=== PATIENT | male | born 1945 | race Caucasian/White ===

== ENCOUNTER 2016-12-24 17:28 | Inpatient (IN) | payer OTHER ==
[~2016-12-24] VITALS: Ht 182.9 cm; Wt 116.4 kg
[2016-12-24] VITALS (16 sets, daily range): BP systolic 80–127; BP diastolic 44–78
--- NOTE | ~2016-12-24 | 2DMMODE ---
[facility] [address] [place] [address] 2 D/M-MODE ECHOCARDIOGRAM Name: VANITA DUMONT Room #: 241-P ADM IN M.R.#: [id number] Admission: 12/24/16 Attend Phys: Houston Wooten Discharge: Date of : 49 Date of Service: 12/25/16 0947 Report #: [id number] THIS REPORT FOR: //name// APPROVED REPORT Study performed: 12/25/2016 08:47:04 EXAM: Comprehensive 2D, Doppler, and color-flow Echocardiogram Patient Location: Bedside Room #: 241 Status: routine Other Information Study Quality: Fair Technically limited study due to limited mobility in ICU, on vent, body habitus. Indications Congestive Heart Failure Hx: Afib, CHF 2D Dimensions RVDd: 41.24 mm LVEF(%): 66.93 (>50%) IVSd: 14.31 (7-11mm) LVOT Diam: 21.07 (18-24mm) LVDd: 50.02 mm PWd: 13.82 (7-11mm) LVDs: 31.41 (25-40mm) Aortic Root: 31.02 mm Beal's LVEF: 66.93 % Volumes Left Atrial Volume (Systole) Single Plane 4CH: 86.22 mL Single Plane 2CH: 84.96 mL LA ESV Index: 39.00 mL/m2 Aortic Valve AoV Peak Phillip.: 2.89 m/s AO Peak Gr.: 33.37 mmHg LVOT Max P.64 mmHg AO Mean Gr.: 18.30 mmHg AO V2 Mean: 2.05 m/s LVOT Max V: 1.38 m/s AO V2 VTI: 58.08 cm NEIL Vmax: 1.67 cm2 Mitral Valve E/A Ratio: 1.1 [facility] [employer] [place] [address] 2 D/M-MODE ECHOCARDIOGRAM Name: VANITA DUMONT Room #: 241-P ADM IN M.R.#: [id number] Admission: 12/24/16 Attend Phys: Houston Wooten Discharge: Date of : 49 Date of Service: 12/25/16 0947 Report #: [id number] MV Decel. Time: 212.38 ms MV E Max Phillip.: 1.22 m/s MV A Phillip.: 1.07 m/s MV PHT: 61.59 ms IVRT: 51.90 ms Pulmonary Valve PV Peak Phillip.: 1.56 m/s PV Peak Gr.: 9.67 mmHg Tricuspid Valve RAP Estimate: 10.00 mmHg Left Ventricle The left ventricle is normal size. There is normal LV segmental wall motion. Mild concentric left ventricular hypertrophy. Left ventricular systolic function is normal. LVEF is 60-65%. Moderate diastolic dysfunction is present (pseudonormal filling). Right Ventricle Right ventricle is not well visualized. Atria Left atrium is mildly dilated. Right atrium is mildly dilated. Aortic Valve Aortic valve is calcified. No aortic regurgitation is present. There is mild valvular aortic stenosis. Calculated aortic valve area is 1.7 cm2 with maximum pressure gradient of 34 mmHg and mean pressure gradient of 18 mmHg. Mitral Valve Mitral valve leaflets are thickened. Mild mitral annular calcification. There is no mitral valve regurgitation noted. No evidence of mitral valve stenosis. Tricuspid Valve The tricuspid valve is normal in structure. There is no tricuspid valve regurgitation noted. Pulmonic Valve Pulmonic valve is not well visualized. Great Vessels The aortic root is normal in size. Ascending aorta is not well visualized. IVC is dilated and collapses <50% with [facility] [address] [place] [address] 2 D/M-MODE ECHOCARDIOGRAM Name: VANITA DUMONT Room #: 241-P [facility] IN M.R.#: [id number] Admission: 12/24/16 Attend Phys: Houston Wooten Discharge: Date of : 49 Date of Service: 12/25/16 0947 Report #: [id number] inspiration. Pericardium There is no pericardial effusion. <Conclusion> The left ventricle is normal size. LVEF is 60-65%. Right ventricle is not well visualized. Left atrium is mildly dilated. Right atrium is mildly dilated. Aortic valve is calcified. No aortic regurgitation is present. There is mild valvular aortic stenosis. Calculated aortic valve area is 1.7 cm2 with maximum pressure gradient of 34 mmHg and mean pressure gradient of 18 mmHg. Mitral valve leaflets are thickened. Mild mitral annular calcification. There is no mitral valve regurgitation noted. No evidence of mitral valve stenosis. The tricuspid valve is normal in structure. Pulmonic valve is not well visualized. Ascending aorta is not well visualized. <ELECTRONICALLY SIGNED> By: Jeff Hernández MD 12/25/16 0947 Jeff Hernández MD /INF
--- NOTE | ~2016-12-24 | EKG ---
[address] [employer] [place] [address] ELECTROCARDIOGRAM REPORT Name: VANITA DUMONT Room #: 241-P ADM IN M.R.#: [id number] Admission: 12/24/16 Attend Phys: Blair Roberts MD Discharge: Date of : 49 Report #: [id number] THIS REPORT FOR: //name// [facility] Test Date: 2016-12-28 Test Time: 20:17:31 Pat Name: VANITA DUMONT Department: Room: 241 P Gender: M Hat Cleaner: Houston SULLIVAN : 1945 Requested By: Guzman Beltran Order Number: [id number] MD: Yves Tellez Measurements Intervals [place] Rate: 92 P: 54 ME: 179 QRS: -12 QRSD: 117 T: 77 QT: 373 QTc: 462 Interpretive Statements Sinus rhythm Ventricular premature complex Incomplete right bundle branch block Low voltage, extremity leads No previous ECG available for comparison Electronically Signed On 12-29-2016 8:12:58 CDT by Yves Tellez [email or web address] <ELECTRONICALLY SIGNED> By: Yves Tellez MD 12/29/16811 16 16 Yves Tellez MD /SANDRA
[2016-12-24 18:13] LABS: ABG SAMPLE TYPE ARTERIAL; BE(vivo) -2.3 mmol/L (-2 to +3); HCO3 21.8 mmol/L (22.0-26.0); LACTATE 1.42 mmol/L (0.5-2.0); O2(CT) 11.2 mL/dL (15.0-23.0); O2Hb 93.1 % (92.0-98.0); PCO2 34.4 mmHg (35.0-45.0); PO2 75.5 mmHg (80.0-100.0); sO2 95.5 % (92.0-98.0); tCO2 22.9 mmol/L (24.0-30.0)
[2016-12-24 18:14] LABS: STICK SITE L.RADIAL; TIDAL VOLUME 550 ml
[2016-12-24 18:20] LABS: URINE BILIRUBIN NEGATIVE (Negative); URINE BLOOD 2+ (Negative); URINE COLOR YELLOW; URINE GLUCOSE-RANDOM* NEGATIVE (Negative); URINE KETONES NEGATIVE (Negative); URINE NITRITE NEGATIVE (Negative); URINE PROTEIN (DIPSTICK) 2+ (Negative); URINE SPECIFIC GRAVITY 1.015 (1.003-1.035); URINE UROBILINOGEN 0.2 E.U./dl (0.2-1.0)
[2016-12-24 18:23] LABS: HEMATOCRIT 21.1 % (42.0-52.0); MCH 30.3 pg (26.0-34.0); MCHC 33.4 g/dL (28.0-37.0); MCV 90.7 fL (80.0-100.0); PLATELET COUNT 48 thou/uL (150-400); RBC 2.32 mil/uL (4.50-6.00); RDW 18.6 % (10.5-14.5)
[2016-12-24 18:26] LABS: AMORPHOUS URATES Moderate /LPF (None Seen); BACTERIA 1-9 Few /HPF (None Seen); CASTS None Seen /LPF (None Seen); SQUAMOUS None Seen /LPF (0-3); URINE RBC 3-10 Few /HPF (0-2); URINE WBC None Seen /HPF (0-5)
[2016-12-24 18:29] LABS: CALCIUM 8.4 mg/dL (8.5-10.1); CREATININE 3.3 mg/dL (0.7-1.3); POTASSIUM 3.7 mmol/L (3.5-5.1)
[2016-12-24 18:30] LABS: MANUAL DIFF YES
[2016-12-24 18:34] LABS: DIRECT BILIRUBIN 0.3 mg/dL (<0.1-0.3); INR 1.1; PROTIME 11.1 Seconds (9.3-11.4); TOTAL BILIRUBIN 0.9 mg/dL (<0.1-1.0); TOTAL PROTEIN 5.4 g/dL (6.4-8.2)
[2016-12-24 18:58] LABS: ABSOLUTE NEUTROPHILS 0.6 thou/uL (1.4-8.2); ANISOCYTOSIS 1+; TOTAL CELL COUNT 100
[2016-12-24] MEDS ORDERED: PACERONE 200 M200 M1 PO (19:14)
[2016-12-24] MEDS ORDERED: NOVOLOG100 UNIT/1 SUBQ (19:16)
[2016-12-24] MEDS ORDERED: LANSOPRAZOLE PO (19:18)
[2016-12-24] MEDS ORDERED: LIDODERM 5%1 PATC1 TRANSDERM (19:18)
[2016-12-24] MEDS ORDERED: LOPERAMIDE 2 MG2 M1 PO (19:19)
[2016-12-24] MEDS ORDERED: ANTACID650 MG PO (19:20)
[2016-12-24] MEDS ORDERED: TACROLIMUS1 MG PO (19:20)
[2016-12-24] MEDS ORDERED: ZOLOFT50 MG PO (19:20)
[2016-12-24] MEDS ORDERED: VANCOMYCIN100 MG/ML PO (19:23)
[2016-12-24] MEDS ORDERED: DEXTROSE 5025 GM/SYR IV PUSH (19:24)
[2016-12-24] MEDS ORDERED: FENTANYL 0.50 MCG/ML IV (19:25)
[2016-12-24] MEDS ORDERED: DIAZEPAM5 MG/1 M1 IV (19:25)
[2016-12-24] MEDS ORDERED: GLUCAGON EMERGEN1 MG IJ (19:26)
[2016-12-24] MEDS ORDERED: GLUTOSE GEL 1515 G1 PO (19:29)
[2016-12-24] MEDS ORDERED: GLUCOSE BITS1 GM PO (19:32)
[2016-12-25] VITALS (42 sets, daily range): BP systolic 81–123; BP diastolic 44–105
[2016-12-25 03:19] LABS: GLYCOHEMOGLOBIN (HGB A1C) 4.9 % (4.8-5.6)
[2016-12-25] MEDS ORDERED: MICONAZOLE5 GM TOP (03:21)
[2016-12-25 05:28] LABS: MCH 30.2 pg (26.0-34.0); MCHC 33.6 g/dL (28.0-37.0); MCV 89.8 fL (80.0-100.0); PLATELET COUNT 41 thou/uL (150-400); RBC 1.92 mil/uL (4.50-6.00); RDW 18.4 % (10.5-14.5)
[2016-12-25 05:29] LABS: MANUAL DIFF YES
[2016-12-25 05:32] LABS: HEMATOCRIT 17.2 % (42.0-52.0); HEMOGLOBIN 5.8 gm/dL (14.0-18.0)
[2016-12-25 05:34] LABS: CALCIUM 7.8 mg/dL (8.5-10.1); CREATININE 3.5 mg/dL (0.7-1.3); POTASSIUM 3.9 mmol/L (3.5-5.1)
[2016-12-25 06:22] LABS: HEMOGLOBIN 5.8 gm/dL (14.0-18.0)
[2016-12-25 09:03] LABS: ABSOLUTE NEUTROPHILS 0.7 thou/uL (1.4-8.2); TOTAL CELL COUNT 50
[2016-12-25 09:04] LABS: ANISOCYTOSIS 2+
[2016-12-25 09:05] LABS: HYPOCHROMASIA 2+
[2016-12-25 14:00] LABS: HEMATOCRIT 20.3 % (42.0-52.0); HEMOGLOBIN 6.8 gm/dL (14.0-18.0)
[2016-12-26] VITALS (23 sets, daily range): BP systolic 87–134; BP diastolic 48–100
[2016-12-26 05:01] LABS: HEMOGLOBIN 8.1 gm/dL (14.0-18.0)
[2016-12-26 05:03] LABS: HEMATOCRIT 24.2 % (42.0-52.0); MCH 29.8 pg (26.0-34.0); MCHC 33.5 g/dL (28.0-37.0); PLATELET COUNT 40 thou/uL (150-400); RBC 2.71 mil/uL (4.50-6.00)
[2016-12-26 05:09] LABS: MANUAL DIFF YES
[2016-12-26 05:11] LABS: WBC 1.4 thou/uL (4.0-11.0)
[2016-12-26 05:18] LABS: ALBUMIN 2.1 g/dL (3.4-5.0); CREATININE 3.6 mg/dL (0.7-1.3); PHOSPHORUS 4.9 mg/dL (2.5-4.9); POTASSIUM 3.8 mmol/L (3.5-5.1)
[2016-12-26 06:54] LABS: ABSOLUTE NEUTROPHILS 0.9 thou/uL (1.4-8.2); ANISOCYTOSIS 2+; HYPOCHROMASIA 1+; POIKILOCYTOSIS SLIGHT; POLYCHROMASIA SLIGHT; TOTAL CELL COUNT 50
[2016-12-26 11:35] LABS: ABG SAMPLE TYPE ARTERIAL; BE(vivo) -9.9 mmol/L (-2 to +3); HCO3 17.9 mmol/L (22.0-26.0); LACTATE 1.42 mmol/L (0.5-2.0); O2(CT) 12.1 mL/dL (15.0-23.0); O2Hb 85.8 % (92.0-98.0); PCO2 47.9 mmHg (35.0-45.0); PO2 66.5 mmHg (80.0-100.0); sO2 88.3 % (92.0-98.0); tCO2 19.4 mmol/L (24.0-30.0)
[2016-12-26 11:36] LABS: STICK SITE R.RADIAL
[2016-12-26 11:37] LABS: TIDAL VOLUME 500 ml
[2016-12-27] VITALS (51 sets, daily range): BP systolic 76–125; BP diastolic 46–102
[2016-12-27 06:06] LABS: CALCIUM 7.9 mg/dL (8.5-10.1); PHOSPHORUS 7.7 mg/dL (2.5-4.9); POTASSIUM 4.1 mmol/L (3.5-5.1)
[2016-12-27 07:25] LABS: HEMOGLOBIN 6.6 gm/dL (14.0-18.0); RBC 2.2 mil/uL (4.50-6.00)
[2016-12-27 07:26] LABS: MCH 29.8 pg (26.0-34.0); MCHC 33.1 g/dL (28.0-37.0); MCV 90.1 fL (80.0-100.0); RDW 18.3 % (10.5-14.5)
[2016-12-27 07:29] LABS: HEMATOCRIT 19.8 % (42.0-52.0); WBC 1.9 thou/uL (4.0-11.0)
[2016-12-27 10:04] LABS: ABG SAMPLE TYPE ARTERIAL; BE(vivo) -7.5 mmol/L (-2 to +3); HCO3 18.9 mmol/L (22.0-26.0); LACTATE 1.36 mmol/L (0.5-2.0); O2(CT) 9.4 mL/dL (15.0-23.0); O2Hb 93.2 % (92.0-98.0); PCO2 42.1 mmHg (35.0-45.0); PO2 90.9 mmHg (80.0-100.0); STICK SITE R.RADIAL; TIDAL VOLUME 500 ml; pH 7.269 (7.360-7.450); sO2 95.9 % (92.0-98.0); tCO2 20.1 mmol/L (24.0-30.0)
[2016-12-27 17:56] LABS: HEMOGLOBIN 6.7 gm/dL (14.0-18.0)
[2016-12-27 17:57] LABS: HEMATOCRIT 19.8 % (42.0-52.0)
[2016-12-28] VITALS (27 sets, daily range): BP systolic 73–138; BP diastolic 40–117
[2016-12-28 05:05] LABS: HEMOGLOBIN 7.2 gm/dL (14.0-18.0); MCV 88.9 fL (80.0-100.0)
[2016-12-28 05:07] LABS: HEMATOCRIT 21.4 % (42.0-52.0); MCHC 33.8 g/dL (28.0-37.0); PLATELET COUNT 36 thou/uL (150-400); RDW 18.2 % (10.5-14.5)
[2016-12-28 05:08] LABS: MANUAL DIFF YES
[2016-12-28 05:10] LABS: WBC 1.8 thou/uL (4.0-11.0)
[2016-12-28 05:23] LABS: CALCIUM 7.6 mg/dL (8.5-10.1); CREATININE 4.1 mg/dL (0.7-1.3); PHOSPHORUS 7.4 mg/dL (2.5-4.9); POTASSIUM 3.8 mmol/L (3.5-5.1)
[2016-12-28 05:31] LABS: BE(vivo) -5.6 mmol/L (-2 to +3); HCO3 17.6 mmol/L (22.0-26.0); LACTATE 1.31 mmol/L (0.5-2.0); O2(CT) 8.9 mL/dL (15.0-23.0); O2Hb 88.2 % (92.0-98.0); PCO2 25.8 mmHg (35.0-45.0); STICK SITE RRA; pH 7.452 (7.360-7.450); sO2 85.4 % (92.0-98.0); tCO2 18.4 mmol/L (24.0-30.0)
[2016-12-28 05:32] LABS: PO2 46.4 mmHg (80.0-100.0); TIDAL VOLUME 500 ml
[2016-12-28 06:28] LABS: ABG SAMPLE TYPE VENOUS
[2016-12-28 07:39] LABS: ABSOLUTE NEUTROPHILS 1.5 thou/uL (1.4-8.2); TOTAL CELL COUNT 100
[2016-12-28 07:40] LABS: ANISOCYTOSIS 2+; OVALOCYTES FEW; POLYCHROMASIA OCCASIONAL
[2016-12-28 08:21] LABS: ABG SAMPLE TYPE ARTERIAL; HCO3 20.2 mmol/L (22.0-26.0); LACTATE 1.61 mmol/L (0.5-2.0); O2(CT) 13.1 mL/dL (15.0-23.0); O2Hb 91.5 % (92.0-98.0); PCO2 47.9 mmHg (35.0-45.0); PO2 76.8 mmHg (80.0-100.0); tCO2 21.6 mmol/L (24.0-30.0)
[2016-12-28 08:22] LABS: STICK SITE L.RADIAL; pH 7.242 (7.360-7.450)
[2016-12-28 08:23] LABS: TIDAL VOLUME 500 ml
[2016-12-28 12:49] LABS: ALBUMIN 2.1 g/dL (3.4-5.0); DIRECT BILIRUBIN 0.5 mg/dL (<0.1-0.3); TOTAL BILIRUBIN 1.3 mg/dL (<0.1-1.0); TOTAL PROTEIN 5.8 g/dL (6.4-8.2)
[2016-12-29] VITALS (21 sets, daily range): BP systolic 80–110; BP diastolic 47–93
[2016-12-29 07:13] LABS: HEMOGLOBIN 7.5 gm/dL (14.0-18.0); WBC 2.6 thou/uL (4.0-11.0)
[2016-12-29 07:15] LABS: HEMATOCRIT 22.2 % (42.0-52.0); MCHC 33.9 g/dL (28.0-37.0); MCV 88.8 fL (80.0-100.0); RBC 2.5 mil/uL (4.50-6.00); RDW 18.6 % (10.5-14.5)
[2016-12-29 07:23] LABS: ALBUMIN 2.1 g/dL (3.4-5.0); CALCIUM 7.8 mg/dL (8.5-10.1); CREATININE 4.5 mg/dL (0.7-1.3); POTASSIUM 3.7 mmol/L (3.5-5.1)
[2016-12-29 09:24] LABS: INR 1.2; PROTIME 12.6 Seconds (9.3-11.4)
[2016-12-29 16:01] LABS: ABG COMMENT CMV; ABG SAMPLE TYPE ARTERIAL; BE(vivo) -2.5 mmol/L (-2 to +3); LACTATE 1.68 mmol/L (0.5-2.0); O2(CT) 9.4 mL/dL (15.0-23.0); O2Hb 89.7 % (92.0-98.0); PCO2 43.2 mmHg (35.0-45.0); PO2 68.8 mmHg (80.0-100.0); STICK SITE R.BRACHIAL; TIDAL VOLUME 500 ml; pH 7.344 (7.360-7.450); sO2 92.8 % (92.0-98.0); tCO2 24.3 mmol/L (24.0-30.0)
[2016-12-30] VITALS (26 sets, daily range): BP systolic 62–166; BP diastolic 36–118
[2016-12-30 05:04] LABS: HEMATOCRIT 20.6 % (42.0-52.0); HEMOGLOBIN 6.9 gm/dL (14.0-18.0); RBC 2.31 mil/uL (4.50-6.00)
[2016-12-30 05:06] LABS: ABG SAMPLE TYPE ARTERIAL; BE(vivo) -3.9 mmol/L (-2 to +3); HCO3 21.6 mmol/L (22.0-26.0); LACTATE 1.52 mmol/L (0.5-2.0); O2Hb 85.7 % (92.0-98.0); PCO2 41.3 mmHg (35.0-45.0); PO2 62.2 mmHg (80.0-100.0); STICK SITE R.RADIAL; TIDAL VOLUME 500 ml; pH 7.336 (7.360-7.450); sO2 90.5 % (92.0-98.0); tCO2 22.8 mmol/L (24.0-30.0)
[2016-12-30 05:06] LABS: MCH 29.7 pg (26.0-34.0); MCHC 33.4 g/dL (28.0-37.0); RDW 18.6 % (10.5-14.5)
[2016-12-30 05:12] LABS: WBC 1.7 thou/uL (4.0-11.0)
[2016-12-30 05:15] LABS: ALBUMIN 2.1 g/dL (3.4-5.0); CALCIUM 7.9 mg/dL (8.5-10.1); CREATININE 4.8 mg/dL (0.7-1.3); PHOSPHORUS 7.6 mg/dL (2.5-4.9); POTASSIUM 3.8 mmol/L (3.5-5.1)
[2016-12-31] VITALS (28 sets, daily range): BP systolic 64–103; BP diastolic 42–73
[2016-12-31 05:58] LABS: CALCIUM 7.8 mg/dL (8.5-10.1); CREATININE 5.4 mg/dL (0.7-1.3); PHOSPHORUS 6.6 mg/dL (2.5-4.9); POTASSIUM 4.2 mmol/L (3.5-5.1)
[2017-01-01] VITALS (25 sets, daily range): BP systolic 53–103; BP diastolic 33–63
[2017-01-02] VITALS (10 sets, daily range): BP systolic 69–102; BP diastolic 46–61
[2017-01-02 17:29] LABS: LEGIONELLA PNEUMO PCR RESULT Not Detected (()); LEGIONELLA SPECIES PCR Not Detected (())
[2017-01-04 21:10] LABS: INFLUENZA B Negative (Negative); METAPNEUMOVIRUS Negative (Negative)
== END 2017-01-02 11:43 | DRG 870 ==
LOC: ER 17:28 → ICU 18:53 → EROBS 18:53 → ICU 20:35
PROVIDERS: Hospitalist; Internal Medicine; Internal Medicine Geriatric Medicine; Internal Medicine Pulmonary Disease; Nurse Practitioner; Nurse Practitioner Family; Specialist
PROC: 5A1955Z Respiratory Ventilation, Greater than 96 Consecutive Hours (ICD-10-PCS; principal; 2016-12-24)
PROC: 30233N1 Transfusion of Nonautologous Red Blood Cells into Peripheral Vein, Percutaneous Approach (ICD-10-PCS; 2016-12-25)
PROC: 02HV33Z Insertion of Infusion Device into Superior Vena Cava, Percutaneous Approach (ICD-10-PCS; 2016-12-25)
DX: A41.9 Sepsis, unspecified organism (principal); J18.9 Pneumonia, unspecified organism; J96.21 Acute and chronic respiratory failure with hypoxia; I50.33 Acute on chronic diastolic (congestive) heart failure; J96.22 Acute and chronic respiratory failure with hypercapnia; E46 Unspecified protein-calorie malnutrition; D61.818 Other pancytopenia; N17.9 Acute kidney failure, unspecified; I13.0 Hypertensive heart and chronic kidney disease with heart failure and stage 1 through stage 4 chronic kidney disease, or unspecified chronic kidney disease; E66.2 Morbid (severe) obesity with alveolar hypoventilation; A04.7 Enterocolitis due to Clostridium difficile; Z94.4 Liver transplant status; Z99.11 Dependence on respirator [ventilator] status; Z94.2 Lung transplant status; I48.91 Unspecified atrial fibrillation; K72.90 Hepatic failure, unspecified without coma; E78.5 Hyperlipidemia, unspecified; L89.159 Pressure ulcer of sacral region, unspecified stage; R65.20 Severe sepsis without septic shock; N18.9 Chronic kidney disease, unspecified; Z68.34 Body mass index [BMI] 34.0-34.9, adult; E83.39 Other disorders of phosphorus metabolism; Z66 Do not resuscitate; I35.0 Nonrheumatic aortic (valve) stenosis; Z88.2 Allergy status to sulfonamides; Z87.891 Personal history of nicotine dependence; Z79.899 Other long term (current) drug therapy; Z93.0 Tracheostomy status
CPT/HCPCS: 10078; 27000